=== PATIENT | male | born 2005 | race Two or more races ===

== ENCOUNTER 2025-02-12 12:13 | Outpatient (OUT) | payer BC, SELFPAY ==
--- OUTSIDE RECORDS SUMMARY | 2022-09-21 07:57 | XMS_ITS | Continuity of Care Document ---
Author Organization [facility] Address [address] [place] [address] Phone Care Team Providers Care Liquefaction And Regasification Helper Name Role Phone John Hoover Unavailable Unavailable Allergies, Adverse Reactions, Alerts Substance Reaction Status Criticality No Known Allergies Active No Inform ation Procedures Procedure Date PREV VISIT, EST, AGE 12-17 Imm Admin Through 18 Yrs Of Age 018 TDAP VACCINE >7 IM Imm Admin Through 18 Yrs Of Age 018 Meningococcal Conjugate Vaccine 018 Imm Admin Through 18 Yrs Of Age 018 HPV 9 Valent UDS Exempt OFFICE/OUTPATIENT VISIT, EST IMMUNIZATION ADMIN HEPB VACC PED/ADOL 3 DOSE IM No Charge FLU VACCINE, NASAL OFFICE/OUTPATIENT VISIT, EST HEP A VACC, PED/ADOL, 2 DOSE DTAP VACCINE, < 7 YRS, IM MMR VACCINE, SC POLIOVIRUS, IPV, SC/IM CHICKEN POX VACCINE, SC Advance Directives Directive Yes / No Effective Date File Name No Information Encounters Encounter Description Practice Location Reason(s) For Visit Diagnoses Date Provider Providers Copied on Encounter [facility], [address], [place], [id number], [place] tel:[phone] [facility] No Information Otoniel Obrien. [address], [place], [id number] , [place]. tel:[phone] PREV VISIT, EST, AGE 12-17 [facility], [address], [place], [id number], [place] tel:[phone] [facility] Well child (chief complaint) Body mass index [BMI] pediatric, greater than or equal to 95th percentile for ageEncounter for routine child health examination without abnormal findings Ngozi Clark. [address], [place], [id number] , [place]. tel:[phone] [facility], [address], [place], [id number], [place] tel:[phone] [facility] No Information Otoniel Obrien. [address], [place], [id number] , [place]. tel:[phone] OFFICE/OUTPAT IENT VISIT, EST [facility], [address], [place], [id number], [place] tel:[phone] [facility] Need for prophylactic vaccination and inoculation against viralhepatitis Otoniel Obrien. [address], [place], [id number] , [place]. tel:[phone] [facility], [address], [place], [id number], [place] tel:[phone] [facility] No Information Otoniel Obrien. [address], [place], [id number] , [place]. tel:[phone] [facility], [address], [place], [id number], [place] tel:[phone] [facility] No Information Otoniel Obrien. [address], [place], [id number] , [place]. tel:[phone] OFFICE/OUTPAT IENT VISIT, [facility], [address], [place], [id number], [place] tel:[phone] [facility] No Information Otoniel Obrien. [address], [place], [id number] , [place]. tel:[phone] Family History Family Member Type Diagnosis Age At Onset No Information Immunizations Vaccine Date Status Comments Influenza virus vaccine, quadrivalent, split virus, preservative free refused Source: New Immuniza tion Record HPV (9-valent) administered Source: New I mmunization Record MCV4 administered Source: New Imm unization Record Tdap administered Source: New Imm unization Record Hep B, adolescent or pediatric administer ed Source: Other Registry Hep B (ped/adol, 3 dose) administered Not e: VIS GIVEN, DECLINED FLU VACCINE. ; Source: New Immunization Record varicella administered Source: Other R egistry influenza, live, intranasal administered Source: Other Registry MMR administered Source: Other R egistry IPV administered Source: Other R egistry Hep A, ped/adol, 2 dose administered Sour ce: Other Registry DTaP administered Source: Other R egistry Novel [id number], nasal administer ed Source: Other Registry Influenza, seasonal, injectable, preservative free administered Source: Ot her Registry pneumococcal conjugate PCV 7 administered Source: Other Registry Hep A, unspecified formulation administer ed Source: Other Registry DTaP-Hep B-IPV administered Source: Other Registry pneumococcal conjugate PCV 7 administered Source: Other Registry MMRV administered Source: Other R egistry Hib, unspecified formulation administered Source: Other Registry DTaP-Hep B-IPV administered Source: Other Registry pneumococcal conjugate PCV 7 administered Source: Other Registry IPV administered Source: Other R egistry Hib-Hep B administered Source: Other R egistry DTaP administered Source: Other R egistry Payers Payer name Insurance type Covered green party ID Authoriza tikirk(s) Medicaid Wrap - [facility] [place] [id number] [employer] Medicaid [place] [id number] Medicaid Wrap - [facility] MC [id number] Social History Type Description Quantity Date Captured Comments Alcohol Use Details Unknown Caffeine Use Details Unknown Tobacco Use Status No Information Smoking Status No Information Sex Male Sexual Orientation Don't Know Gender Identity Male Chief Complaint And Reason For Visit No Information Reason For Referral Reason For Referral No Information Plan Of Treatment Date Type Action Status Goal Tdap Vaccine. Due on 2027 due Goal RLP. Due on due Goal Depression screening. Due on due Goal Hep A. Due on du e Goal Influenza vaccine. Due on due Goal Tdap due Goal Dietary management education , guidance, and counseling completed History Of Present Illness Encounter Date Complaint History Of Prese nt Illness Well child Pt here today wi th father for work physical.PT plans on working at [employer]. 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 Pt states doing well not having any new problems ,above was reviewed and agreed with MLP Functional Status Date Functional Assessmen t No Information Instructions Date Instruction Additional Infor mation Dietary management e ducation, guidance, and counseling Related to Body mass index [BMI] pediatric, greater than or equal to 95th percentile for age Giving encouragement to exercise Related to Body mass index [BMI] pediatric, greater than or equal to 95th percentile for age Assessments Type Assessment Date No Information Patient Care Teams Name Effective Dates (start - stop) Status Members No Information
--- OUTSIDE RECORDS SUMMARY | 2025-02-08 19:00 | XMS_ITS | Encounter Summary ---
Author Organization [facility] Address [address] [place] [address] Care Team Providers Care Tax Appraiser Name Role Phone Unavailable Primary Care Provider Unavailabl e Encounter Details Date Type Department Care Team (Late st Contact Info) Description 02/08/2025 7:00 PM EDT Office Visit [facility] [address] [place] [address] Lona Delacruz, [address] [place] [address] Right eyelid laceration, initial encounter Social History Tobacco Use Types Packs/Day Years Used Date Smoking Tobacco: Never Smokeless Tobacco: Never Sex and Gender Information Value Date Recorded Sex Assigned at Not on file Legal Sex Male 7:06 PM EDT Gender Identity Not on file Sexual Orientation Not on file documented as of this encounter Last Filed Vital Signs Vital Sign Reading Time Taken Comments Blood Pressure 122/88 02/08/2025 7:01 PM EDT Pulse 110 02/08/2025 7:01 PM EDT Temperature 37.1 C (98.7 F) 02/08/2025 7:01 PM EDT Respiratory Rate 20 02/08/2025 7:01 PM EDT Oxygen Saturation 99% 02/08/2025 7:01 PM EDT Inhaled Oxygen Concentration - - Weight 112 kg (248 lb) 02/08/2025 7:01 PM EDT Height - - Body Mass Index - - documented in this encounter Progress Notes * Lona Delacruz NP - 02/08/2025 7:00 PM EDT Images from the original note were not included. [address], [address] [facility] [place], [address] P: [phone] F: [phone] HPI Historian of HPI: patient Aamir Burgos is a 19 y.o. male who presents today to the Urgent Care with the following complaints and denials due to a laceration to the right eyelid. Pt states he bumped heads with his cousin in the pool about an hour ago. C/O Denies Symptom Comments [x] [] pain [x] [] tenderness [] [x] erythema [] [x] Currently taking blood thinners [x] [] swelling [] [x] Loss of sensation [] [x] Decreased ROM [x] [] tingling [] [x] numbness Additional Comments: Pt states that the injury occurred 1 hour(s) ago. The laceration occurred from bumped heads with his cousin . Length of laceration is 1 cm. The depth of the laceration is epidermis. Pt reports last tetanus was: 5 years ago pt has not taken any OTC medications ROS A complete system ROS was performed and negative aside from the pertinent positives noted in the HPI and PE. Visit Vitals BP 122/88 (BP Location: Left arm, Patient Position: Sitting, BP Cuff Size: Large adult) Pulse 110 Temp 98.7 ??F (Temporal) Wt 248 lb SpO2 99% Smoking Status Never PHYSICAL EXAM Physical Exam Vitals reviewed. Constitutional: General: He is not in acute distress. Appearance: Normal appearance. HENT: Head: Normocephalic and atraumatic. Nose: Nose normal. Mouth/Throat: Mouth: Mucous membranes are moist. Pharynx: Oropharynx is clear. Eyes: Extraocular Movements: Extraocular movements intact. Conjunctiva/sclera: Conjunctivae normal. Pupils: Pupils are equal, round, and reactive to light. Cardiovascular: Rate and Rhythm: Normal rate and regular rhythm. Pulses: Normal pulses. Heart sounds: Normal heart sounds. Pulmonary: Effort: Pulmonary effort is normal. No respiratory distress. Breath sounds: No wheezing, rhonchi or rales. Musculoskeletal: General: Normal range of motion. Cervical back: Normal range of motion and neck supple. Skin: General: Skin is warm and dry. Capillary Refill: Capillary refill takes less than 2 seconds. Findings: Erythema and laceration present. No rash. Neurological: General: No focal deficit present. Mental Status: He is alert and oriented to person, place, and time. GCS: GCS eye subscore is 4. GCS verbal subscore is 5. GCS motor subscore is 6. Cranial Nerves: Cranial nerves 2-12 are intact. Sensory: Sensation is intact. Motor: Motor function is intact. Coordination: Coordination is intact. Gait: Gait is intact. Psychiatric: Mood and Affect: Mood normal. TREATMENT PLAN 1. Right eyelid laceration, initial encounter Dx and tx discussed. [place] mai applied without difficulty. No signs of infection. He denies loss of consciousness, vision changes, headaches, dizziness, lightheadedness, or N/V. Signs/symptoms and red flags of when to seek emergent medical attention were discussed. He expressed an understanding. - Wound Care * Juancho Cote MA - 02/08/2025 7:00 PM EDTAssociated Order(s): Wound Care Post-Procedure Diagnose(s): Right eyelid laceration, initial encounter Images from the original note were not included. Patient ID: Aamir Burgos is a 19 y.o. male. Wound Care Date/Time: 02/08/2025 7:16 PM Performed by: Juancho Cote MA Authorized by: Lona Delacruz NP Consent: Consent obtained: Verbal Consent given by: Patient Risks discussed: Pain Melbeta protocol: Patient identity confirmed: Verbally with patient Procedure details: Wound location: Face Face location: R upper eyelid Wound age (days): <1 Post-procedure details: Procedure completion: Tolerated Comments: Pt laceration was cleaned with iodine (1) small band-aid was used (1) 2X2 gauze pad was used Pt tolerated well with no complaints documented in this encounter Plan of Treatment Not on file documented as of this encounter Procedures Procedure Name Priority Date/Time Associated Diagnosis Comments WOUND CARE Routine 02/08/2025 7:16 PM EDT Right eyelid laceration, initial encounter documented in this encounter Results * Wound Care (02/08/2025 7:16 PM EDT) Juancho Boateng MA - 02/08/2025 7:16 PM EDSeveriano Cote MA 02/10/2025 6:54 PM Wound Care Date/Time: 02/08/2025 7:16 PM Performed by: Juancho Cote MA Authorized by: Lona Delacruz NP Consent: Consent obtained: Verbal Consent given by: Patient Risks discussed: Pain Melbeta protocol: Patient identity confirmed: Verbally with patient Procedure details: Wound location: Face Face location: R upper eyelid Wound age (days): <1 Post-procedure details: Procedure completion: Tolerated Comments: Pt laceration was cleaned with iodine (1) small band-aid was used (1) 2X2 gauze pad was used Pt tolerated well with no complaints us Lona Delacruz NP IN CLINIC/BEDSIDE ORDERABLES Final Result documented in this encounter Visit Diagnoses Diagnosis Right eyelid laceration, initial encounter documented in this encounter
--- OUTSIDE RECORDS SUMMARY | 2025-02-09 10:20 | XMS_ITS | Encounter Summary ---
Author Organization [facility] Address [address] [place] [address] Care Team Providers Care Reel And Rewinder Operator Name Role Phone Unavailable Primary Care Provider Unavailabl e Encounter Details Date Type Department Care Team (Latest Contact Info) Description 02/09/2025 10:20 AM EDT Office Visit [facility] [address] [place] [address] Cyrus Xiao, [address] [place] [address] Conjunctivitis of right eye, unspecified conjunctivitis type (Primary Dx); Right eyelid laceration, subsequent encounter Social History Tobacco Use Types Packs/Day Years Used Date Smoking Tobacco: Never Smokeless Tobacco: Never Sex and Gender Information Value Date Recorded Sex Assigned at Not on file Legal Sex Male 7:06 PM EDT Gender Identity Not on file Sexual Orientation Not on file documented as of this encounter Last Filed Vital Signs Vital Sign Reading Time Taken Comments Blood Pressure 148/76 02/09/2025 10:29 AM EDT Pulse 78 02/09/2025 10:29 AM EDT Temperature 36.2 C (97.1 F) 02/09/2025 10:29 AM EDT Respiratory Rate - - Oxygen Saturation 97% 02/09/2025 10:29 AM EDT Inhaled Oxygen Concentration - - Weight - - Height - - Body Mass Index - - documented in this encounter Plan of Treatment Not on file documented as of this encounter Visit Diagnoses Diagnosis Conjunctivitis of right eye, unspecified conjunctivitis type- Primary Right eyelid laceration, subsequent encounter documented in this encounter
--- OUTSIDE RECORDS SUMMARY | 2025-02-12 12:21 | XMS_ITS | Encounter Summary ---
Author Organization [facility] Address [address] [place] [address] Care Team Providers Care Boring Mill Set Up Operator Vertical Name Role Phone Unavailable Primary Care Provider Unavailabl e Encounter Details Date Type Department Care Team (Latest Contact Info) Description 02/08/2025 Travel Social History Tobacco Use Types Packs/Day Years Used Date Smoking Tobacco: Never Smokeless Tobacco: Never Sex and Gender Information Value Date Recorded Sex Assigned at Not on file Legal Sex Male 7:06 PM EDT Gender Identity Not on file Sexual Orientation Not on file documented as of this encounter Plan of Treatment Not on file documented as of this encounter Visit Diagnoses Not on filedocumented in this encounter
--- OUTSIDE RECORDS SUMMARY | 2025-02-12 12:21 | XMS_ITS | Encounter Summary ---
Author Organization [facility] Address [address] [place] [address] Care Team Providers Care Novelty Twister Tender Name Role Phone Unavailable Primary Care Provider Unavailabl e Encounter Details Date Type Department Care Team (Latest Contact Info) Description 02/09/2025 Travel Social History Tobacco Use Types Packs/Day [...]
--- OUTSIDE RECORDS SUMMARY | 2025-02-12 12:21 | XMS_ITS | Encounter Summary ---
Author Organization [facility] Address [address] [address] Care Team Providers Care Doctor Of Naturopathic Medicine Name Role Phone Unavailable Primary Care Provider Unavailabl e Encounter Details Date Type Department Care Team (Late st Contact Info) Description 02/09/2025 Telephone [facility] [address] [place] [id number] Inga Joe MA Social History Tobacco Use Types Packs/Day Years Used Date Smoking Tobacco: Never Smokeless Tobacco: Never Sex and Gender Information Value Date Recorded Sex Assigned at Not on file Legal Sex Male 7:06 PM EDT Gender Identity Not on file Sexual Orientation Not on file documented as of this encounter Miscellaneous Notes * Telephone Encounter - Inga Joe MA - 02/09/2025 11:[address] Xiao pt was called and was asked what pharmacy to send medication to. Pt answered and prescription was sent to the one he requested. Pt has no other questions and verbally understood. documented in this encounter Plan of Treatment Not on file documented as of this encounter Visit Diagnoses Not on filedocumented in this encounter
--- NOTE | 2025-02-12 12:42 | XR_ITS ---
[facility] [place] [id number] Patient Name: MARIELOS OLVERA MRN: [id number] date: 2005 Sex: M Assigned Patient Location: LAB Current Patient Location: LAB Accession/Order Number: [id number] Exam Date: 02/12/2025 13:25 Report Date: 02/12/2025 13:25 At the request of: DARIO PAULA MD Procedure: XR ankle LT min 3V LEFT ANKLE - 3 views CLINICAL HISTORY: Inversion Sprain Left Ankle COMPARISON: None FINDINGS: Soft tissue swelling. Ankle mortise appears intact without acute bony process. XR/XR ankle LT min 3V IMPRESSION: SOFT TISSUE SWELLING WITHOUT ACUTE BONY PROCESS. Impression dictated by: Kannan Gutierrez Jr., D.OMaddie 02/12/2025 1:25 PM Dictation Location: [place] [address] Electronically authenticated by: [id number] Y Date: 02/12/2025 13:25
--- NOTE | 2025-02-12 12:42 | XR_ITS ---
[facility] [place] [id number] Patient Name: MARIELOS OLVERA MRN: [id number] date: 2005 Sex: M Assigned Patient Location: LAB Current Patient Location: LAB Accession/Order Number: [id number] Exam Date: 02/12/2025 13:24 Report Date: 02/12/2025 13:25 At the request of: DARIO PAULA MD Procedure: XR lumbar spine min 4V LUMBAR SPINE - 4 views CLINICAL HISTORY: Chronic Bilateral Low Back Pain COMPARISON: None FINDINGS: Vertebral body and disc space heights appear maintained. Facet joints appear unremarkable. SI joints demonstrate minimal degenerative change. XR/XR lumbar spine min 4V IMPRESSION: NO ACUTE BONY PROCESS OR SIGNIFICANT DEGENERATIVE CHANGE. Impression dictated by: Kannan Gutierrez Jr., D.O. 02/12/2025 1:25 PM Dictation Location: [place] [address] Electronically authenticated by: [id number] Y Date: 02/12/2025 13:25
[2025-02-12 12:53] LABS: Basophils Percent Auto 0.2 % (0.2-2.0); Eosinophils Percent Auto 0.2 % (0.9-7.0); Hematocrit 46.1 % (42.0-54.0); Hemoglobin 15.5 g/dL (14.0-18.0); Immature Granulocytes Abs Auto 0.03 10^3/uL (0.00-0.03); Immature Granulocytes Pct Auto 0.3 % (0.0-0.5); Lymphocytes Absolute Auto 1.8 10^3/uL (1.2-3.8); Lymphocytes Percent Auto 19.1 % (20.5-60.0); Mean Corpuscular HGB Conc 33.6 g/dL (29.9-35.2); Mean Corpuscular Hemoglobin 29.5 pg (25.9-34.0); Mean Corpuscular Volume 87.8 fL (80.0-94.0); Mean Platelet Volume 10.3 fL (9.5-13.5); Monocytes Absolute Auto 0.7 10^3/uL (0.3-0.8); Monocytes Percent Auto 7.9 % (1.7-12.0); Neutrophils Absolute Auto 6.7 10^3/uL (1.4-6.5); Neutrophils Percent Auto 72.3 % (43.0-75.0); Platelet Count 369 10^3/uL (150-450); Red Blood Count 5.25 10^6/uL (4.70-6.10); Red Cell Distribution Width 11.9 % (11.0-15.0); White Blood Count 9.2 10^3/uL (4.0-11.0)
[2025-02-12 13:10] LABS: Erythrocyte Sedimentation Rate 46 mm/hr (<=15); Estimated Average Glucose 114 mg/dL; Glycohemoglobin A1C 5.6 % (4.5-6.2)
[2025-02-12 13:11] LABS: Alanine Aminotransferase 32 U/L (16-63); Albumin Globulin Ratio 0.8; Albumin Level 3.8 g/dL (3.4-5.0); Alkaline Phosphatase 84 U/L (46-116); Anion Gap 13.8; Aspartate Amino Transferase 18 U/L (15-37); BUN Creatinine Ratio 17.2; Bilirubin Total 0.3 mg/dL (0.2-1.0); C Reactive Protein 1.94 mg/dL (<=0.50); Calcium 9.4 mg/dL (8.5-10.1); Carbon Dioxide 27.5 mmol/L (21.0-32.0); Chloride 105 mmol/L (98-107); Chol HDL Ratio 3.2; Cholesterol 146 mg/dL (109-189); Estimated GFR (African America >60 (>=60 mL/min/1.73m^2); Estimated GFR (Non-African Ame >60 (>=60 mL/min/1.73m^2); Globulin 4.6 g/dL; Glucose 113 mg/dL (74-106); HDL Cholesterol 45 mg/dL (23-55); Potassium 4.3 mmol/L (3.5-5.1); Sodium 142 mmol/L (136-145); Total Protein 8.4 g/dL (6.4-8.2); Triglycerides 47 mg/dL (50-183); VLDL CHOLESTEROL 9.4 mg/dL
== END 2025-02-12 12:14 | disposition home or self-care (01) ==
PROVIDERS: PCP Family Medicine; Visit Provider Family Medicine
DX: M54.50 Low back pain, unspecified (principal); E66.9 Obesity, unspecified; S93.402A Sprain of unspecified ligament of left ankle, initial encounter; M25.472 Effusion, left ankle
CPT/HCPCS: 36415; 72110; 73610; 80053; 80061; 83036; 85025; 85652; 86140